=== PATIENT | female | born 1995 | race Caucasian/White ===

== ENCOUNTER 2023-06-02 10:57 | Emergency (ER) | payer OTHER ==
[~2023-06-02] VITALS: Ht 162.6 cm; Wt 77.1 kg
[2023-06-02 11:07] VITALS: BP 140/99; PULSE 96; TEMP 98.1; O2SAT 97
[2023-06-02 13:30] LABS: URINE HCG NEGATIVE (NEG)
[2023-06-02 16:34] VITALS: RESP 16
[2023-06-02] MEDS: ketorolac trometh. 30mg/ml inj. IM ONE (16:34)
[2023-06-02] MEDS: LEVONORGESTREL 1.5MG tablet 1.5 MG TABLET PO ONE (16:47)
[2023-06-02] MEDS: CefTRIAXone 500MG IM Kit w/LIDOcaine (for pt below or = to 150kg) IM ONE (16:48)
[2023-06-02] MEDS: TINIDAZOLE 500 MG TABLET PO ONE (16:48)
[2023-06-02] MEDS: azithromycin 250mg tablet PO ONE (16:49)
[2023-06-02] MEDS ORDERED: IBUP-1986 PO (16:54)
[2023-06-02] MEDS ORDERED: ONDA8TAB13 PO (16:54)
== END 2023-06-02 20:15 | disposition home or self-care (01) ==
LOC: ER 10:57 → EEVIPCON 10:57 → ER 20:15
DX: T76.21XA Adult sexual abuse, suspected, initial encounter (principal); S10.83XA Contusion of other specified part of neck, initial encounter; Y93.89 Activity, other specified; Y92.89 Other specified places as the place of occurrence of the external cause; Y99.8 Other external cause status
CPT/HCPCS: 72125; 81025; 96372; 99285; J0696; J1885

== ENCOUNTER 2023-06-10 18:05 | Emergency (ER) | payer SELFPAY ==
[~2023-06-10] VITALS: Ht 162.6 cm; Wt 77.4 kg
[~2023-06-10 18:05] MED LIST: IBUP-1986 PO; ONDA8TAB13 PO
[2023-06-10 18:15] VITALS: BP 123/99; PULSE 88; RESP 20; TEMP 98.1; O2SAT 100
[2023-06-10] MEDS: LORazepam 1 MG tablet PO ONE (18:48)
[2023-06-10] MEDS ORDERED: LORA-269 PO (19:26)
== END 2023-06-10 19:39 | disposition home or self-care (01) ==
LOC: ER 18:05
DX: F41.0 Panic disorder [episodic paroxysmal anxiety] (principal); F45.8 Other somatoform disorders; R29.0 Tetany; Z88.6 Allergy status to analgesic agent
CPT/HCPCS: 99283

== ENCOUNTER 2023-11-06 13:07 | Emergency (ER) | payer MEDICAID ==
[~2023-11-06] VITALS: Ht 162.6 cm; Wt 77.5 kg
[~2023-11-06 13:07] MED LIST changes: +LORA-269 PO; +ONDA-245 PO; -ONDA8TAB13 PO
[2023-11-06 15:15] VITALS: BP 137/89; PULSE 87; RESP 18; TEMP 98.3; O2SAT 100
== END 2023-11-06 15:13 | disposition home or self-care (01) ==
LOC: ER 13:07
DX: B34.9 Viral infection, unspecified (principal); Z20.822 Contact with and (suspected) exposure to COVID-19; Z91.013 Allergy to seafood; Z79.1 Long term (current) use of non-steroidal anti-inflammatories (NSAID); Z79.899 Other long term (current) drug therapy
CPT/HCPCS: 36415; 87811; 99283

== ENCOUNTER → 2023-11-30 | Emergency (ER) | payer MEDICAID ==
[~2023-11-30] VITALS: Ht 162.6 cm; Wt 73.7 kg
[2023-11-30 18:47] VITALS: BP 148/99; PULSE 117; RESP 16; TEMP 98.4; O2SAT 99
[2023-11-30 20:07] LABS: BASOPHILS % (AUTO) 0.4 % (0-1); EOSINOPHILS # (AUTO) 0.1 X10'3 (0-0.9); EOSINOPHILS % (AUTO) 1.8 % (0-6); HEMATOCRIT 42.3 % (35.0-45.0); HEMOGLOBIN 14.3 g/dl (12.0-16.0); LYMPHOCYTES # (AUTO) 1.5 X10'3 (1.1-4.8); LYMPHOCYTES % (AUTO) 24.4 % (21-51); MEAN CORPUSCULAR HEMOGLOBIN 30.9 PG (27.0-31.0); MEAN CORPUSCULAR HGB CONC 33.8 g/dL (33.0-36.5); MEAN CORPUSCULAR VOLUME 91.5 FL (78-98); MEAN PLATELET VOLUME 7.4 FL (7.4-10.4); MONOCYTES # (AUTO) 0.7 X10'3 (0-0.9); MONOCYTES % (AUTO) 11.7 % (2-12); NEUTROPHILS # (AUTO) 3.8 X10'3 (1.8-7.7); NEUTROPHILS % (AUTO) 61.7 % (42-75); PLATELET COUNT 333 X10'3 (140-440); RED BLOOD COUNT 4.62 X10'6 (4.20-5.60); RED CELL DISTRIBUTION WIDTH 13.5 % (11.5-14.5); WHITE BLOOD COUNT 6.1 X10'3 (4.5-11.0)
[2023-11-30 20:09] LABS: ALBUMIN 3.9 G/DL (3.4-5.0); ANION GAP 9 (8-16); BLOOD UREA NITROGEN 10 MG/DL (7-18); BUN/CREATININE RATIO 10.9 (10.0-20.0); CALCIUM 9.6 MG/DL (8.5-10.1); CHLORIDE 101 MMOL/L (99-107); CREATININE 0.92 MG/DL (0.40-0.90); GLUCOSE 96 MG/DL (70-104); POTASSIUM 3.5 MMOL/L (3.5-5.1); SODIUM 136 MMOL/L (135-145); TOTAL CARBON DIOXIDE 25.9 MMOL/L (24-32); eCRCL 80 ML/MIN; eGFR 74 ML/MIN
[2023-11-30] MEDS: ondansetron 4mg rapidly disintigrating tab PO ONE (20:09)
== END | disposition home or self-care (01) ==
LOC: ER 18:34
DX: J02.9 Acute pharyngitis, unspecified (principal); Z91.013 Allergy to seafood; Z79.1 Long term (current) use of non-steroidal anti-inflammatories (NSAID); Z79.899 Other long term (current) drug therapy
CPT/HCPCS: 36415; 80048; 85025; 99283

== ENCOUNTER 2024-03-13 00:03 | Emergency (ER) | payer MEDICAID ==
[~2024-03-13] VITALS: Ht 172.7 cm; Wt 48.2 kg
[2024-03-13 00:43] LABS: BASOPHILS % (AUTO) 0.5 % (0-1); EOSINOPHILS # (AUTO) 0.1 X10'3 (0-0.9); EOSINOPHILS % (AUTO) 0.8 % (0-6); HEMATOCRIT 40.3 % (35.0-45.0); HEMOGLOBIN 13.8 g/dl (12.0-16.0); LYMPHOCYTES # (AUTO) 2.5 X10'3 (1.1-4.8); LYMPHOCYTES % (AUTO) 41.9 % (21-51); MEAN CORPUSCULAR HEMOGLOBIN 31.7 PG (27.0-31.0); MEAN CORPUSCULAR HGB CONC 34.1 g/dL (33.0-36.5); MEAN CORPUSCULAR VOLUME 93.1 FL (78-98); MONOCYTES # (AUTO) 0.5 X10'3 (0-0.9); MONOCYTES % (AUTO) 8.8 % (2-12); NEUTROPHILS # (AUTO) 2.9 X10'3 (1.8-7.7); PLATELET COUNT 440 X10'3 (140-440); RED BLOOD COUNT 4.33 X10'6 (4.20-5.60); RED CELL DISTRIBUTION WIDTH 13.8 % (11.5-14.5)
[2024-03-13 00:51] LABS: ALANINE AMINOTRANSFERASE 42 U/L (12-78); ALBUMIN 4.1 G/DL (3.4-5.0); ALBUMIN/GLOBULIN RATIO 0.9 (1.1-1.5); ALKALINE PHOSPHATASE 81 IU/L (46-116); ANION GAP 10 (8-16); ASPARTATE AMINO TRANSFERASE 31 U/L (10-37); BILIRUBIN,TOTAL 0.5 MG/DL (0.1-1.0); BLOOD UREA NITROGEN 11 MG/DL (7-18); BUN/CREATININE RATIO 14.3 (10.0-20.0); CHLORIDE 105 MMOL/L (99-107); CREATININE 0.77 MG/DL (0.40-0.90); GLUCOSE 102 MG/DL (70-104); POTASSIUM 3.8 MMOL/L (3.5-5.1); SODIUM 140 MMOL/L (135-145); TOTAL CARBON DIOXIDE 25.4 MMOL/L (24-32); TOTAL PROTEIN 8.6 G/DL (6.4-8.2); eCRCL 84 ML/MIN; eGFR > 90 ML/MIN
[2024-03-13] MEDS: normal saline 1000ML IV soln IVB ONE (00:58)
[2024-03-13] MEDS: ondansetron/PF 4mg/2ml inj IV ONE (00:58)
[2024-03-13 01:08] LABS: ETHANOL 247 MG/DL (<10); SALICYLATE 1.3 MG/DL (4.0-20.0); THYROID STIMULATING HORMONE 1.53 ulU/ml (0.34-4.50)
[2024-03-13] MEDS ORDERED: HYDR-3686 PO ×2 (01:08→03:39)
[2024-03-13 01:42] LABS: ACETAMINOPHEN < 2.0 UG/ML (10-30)
[2024-03-13 03:01] LABS: URINE HCG NEGATIVE (NEG)
[2024-03-13 03:14] LABS: BILIRUBIN,URINE NEGATIVE (Neg); CLARITY,URINE SLIGHTLY CLOUDY (Clear); COLOR,URINE YELLOW (Yellow); GLUCOSE, URINE NEGATIVE (Neg); KETONES,URINE NEGATIVE (Neg); LEUKOCYTE ESTERASE ,URINE NEGATIVE (Neg); NITRITES, URINE NEGATIVE (Neg); OCCULT BLOOD,URINE SMALL (Neg); PH,URINE 6.5 (4.8-8.0); PROTEIN,URINE NEGATIVE (Neg); UROBILINOGEN,URINE 0.2 E.U/dL (0.2-1.0)
[2024-03-13 03:17] LABS: URINE AMPHETAMINE SCREEN NEGATIVE (Neg); URINE BARBITUATE SCREEN NEGATIVE (Neg); URINE BENZODIAZEPINES SCREEN NEGATIVE (Neg); URINE CANNABINOID SCREEN POSITIVE (Neg); URINE COCAINE SCREEN POSITIVE (Neg); URINE METHADONE SCREEN NEGATIVE (Neg); URINE OPIATE SCREEN NEGATIVE (Neg); URINE PHENCYCLIDINE SCREEN NEGATIVE (Neg)
[2024-03-13 03:25] LABS: SQUAMOUS EPITHELIAL CELL,UR MANY /LPF (FEW); UA COLLECTION TYPE NON-SPECIFIED
[2024-03-13 03:26] LABS: BACTERIA,URINE 1+ /HPF (Neg); WBC,URINE 0-4 /HPF (0-4)
[2024-03-13 14:37] VITALS: BP 147/96; PULSE 88; RESP 16; TEMP 98.1; O2SAT 100
== END 2024-03-13 14:42 | disposition home or self-care (01) ==
LOC: ER 00:04
DX: F10.129 Alcohol abuse with intoxication, unspecified (principal); T14.91XA Suicide attempt, initial encounter; T43.591A Poisoning by other antipsychotics and neuroleptics, accidental (unintentional), initial encounter; R11.0 Nausea; F19.10 Other psychoactive substance abuse, uncomplicated; Z91.013 Allergy to seafood; Z79.1 Long term (current) use of non-steroidal anti-inflammatories (NSAID); Z79.899 Other long term (current) drug therapy; Z20.822 Contact with and (suspected) exposure to COVID-19; Y92.89 Other specified places as the place of occurrence of the external cause
CPT/HCPCS: 36415; 80053; 80305; 80320; 80329; 81001; 81025; 84443; 85025; 87811; 93005; 96361; 96374; 99285; J2405; J7030